=== PATIENT | female | born 1945 | race Caucasian/White ===

== ENCOUNTER 2016-12-20 17:33 | Outpatient (CLI) | payer MEDICAID, MEDICARE ==
[2016-12-20 18:02] LABS: Blood, Urine Negative (Negative); Clarity Slightly Cloudy (Clear); Glucose, Urine (Dipstick) 100 mg/dL (Negative); Leukocyte Large (Negative); Nitrite Positive (Negative); Protein, Urine (Dipstick) 100 mg/dL (Neg-Trace); Specific Gravity, Urine 1.025 (1.005-1.030)
[2016-12-20 18:04] LABS: Bilirubin Negative (Negative); Icto Negative (Negative)
[2016-12-20 18:05] LABS: Bacteria/HPF 3+ HPF (None Seen); WBC/HPF 21-50 HPF (0-3)
[2016-12-20 18:06] LABS: Crystals/HPF 1+ CA OXALATE HPF (Negative)
== END 2016-12-20 17:34 | disposition home or self-care (01) ==
LOC: MADLAB 17:33
PROVIDERS: ATTEND Family Medicine
DX: N39.0 Urinary tract infection, site not specified (principal)
CPT/HCPCS: 81003; 81015; 87086